=== PATIENT | female | born 2000 | race Caucasian/White ===

== ENCOUNTER 2022-05-21 13:12 | Emergency (ER) | payer OTHER ==
[2022-05-21 14:25] LABS: CORONAVIRUS 2019 SARS-COV-2 NEGATIVE (NEGATIVE); INFLUENZA A NAA NEGATIVE (NEGATIVE)
[2022-05-21 14:59] LABS: BASOPHIL 0.7 % (0-2); EOSINOPHIL 2.9 % (0-5); HCT 42.7 % (37.0-47.0); HGB 14.8 g/dl (12.5-16.0); LYMPHOCYTE 9.1 % (15-48); MCH 31.4 pg (25.0-31.0); MCHC 34.7 g/dL (32.0-36.0); MCV 90.7 fL (78.0-100.0); MONOCYTE 7.5 % (0-12); MPV 11.3 fL (6.0-9.5); NEUTROPHIL 79.6 % (41-80); NRBC 0; PLT 164 K/uL (150-400); RBC 4.71 M/uL (4.20-5.40); RDW 11.9 % (11.5-14.0)
[2022-05-21 15:17] LABS: BUN/CREAT RATIO (CALC) 14.9 RATIO; CREATININE 0.67 mg/dL (0.51-0.95); POTASSIUM 3.3 mmol/L (3.5-5.1)
[2022-05-21] MEDS ORDERED: PREDNISONE 20MG20 MG PO (16:52)
[2022-05-21] MEDS ORDERED: VENTOLIN HFA IN18 GM INH (16:52)
== END 2022-05-21 17:30 | disposition home or self-care (01) ==
LOC: FER 13:12
PROVIDERS: Emergency Medicine
DX: J98.01 Acute bronchospasm (principal); B34.9 Viral infection, unspecified; F17.290 Nicotine dependence, other tobacco product, uncomplicated; Z20.822 Contact with and (suspected) exposure to COVID-19
CPT/HCPCS: 36415; 71046; 80048; 85025; 93005; 94664; J2930; U0002